=== PATIENT | female | born 1970 | race Caucasian/White ===

== ENCOUNTER 2019-04-05 12:15 | Emergency (ER) | payer MEDICAID ==
[~2019-04-05] VITALS: Ht 154.9 cm; Wt 72.1 kg
[~2019-04-05 12:15] MED LIST: ALBE200T PO; NO MEDS; PROP20TA4 PO; RANI150T35 PO; SIMV40TA2 PO
[2019-04-05 12:21] VITALS: Ht 154.9 cm; Wt 72.1 kg
[2019-04-05] MEDS ORDERED: LIDOCAINE/MYLANTA 40 ML BTL PO STA (13:46)
[2019-04-05] MEDS ORDERED: FAMOTIDINE 20 MG TAB PO STA (13:46)
[2019-04-05 15:56] VITALS: BP 120/80; PULSE 56; RESP 16
== END 2019-04-05 15:57 | disposition home or self-care (01) ==
LOC: E/R 12:15
DX: R07.9 Chest pain, unspecified (principal); R10.13 Epigastric pain
CPT/HCPCS: 36415; 71045; 80053; 81025; 83690; 84484; 85025; 93005; Z7502; Z7610